=== PATIENT | male | born 1950 | race Caucasian/White ===

== ENCOUNTER 2017-03-01 10:57 | Outpatient (CLI) | payer MEDICARE ==
[~2017-03-01] VITALS: Ht 188 cm; Wt 92.7 kg
--- NOTE | ~2017-03-01 | HEMODYNAMI ---
PATIENT:ARON BOWLING MEDICAL RECORD: [id number] : 50 LOCATION:D.CAT ADMISSION DATE: 03/01/17 Generatedon:03/01/201713:50 Patient name: ARON BOWLING Patient #: [id number] SSN: : 1950 Date of study: 03/01/2017 Page: Of Hemodynamic Procedure Report Patient Data Patient Demographics Procedure consent was obtained First Name: ARON Gender: Male Last Name: DASH : 1950 Middle Initial: SUNIL Age: 66 year(s) Patient #: [id number] Race: Unknown Additional ID: [id number] Contact details Address: [address] [place] [address] State: [place] City: [place] Zip code: [address] Past Medical History Allergies Allergen Reaction Date Comments Reported Other allergy 03/01/2017 PCN, Sulfa Admission Admission Data Admission Date: 03/01/2017 Admission Time: 10:57 Admit Source: Other Height (in.): 72 BSA: 2.15 (m2) Height (cm.): 182.88 BMI: 27.67 (kg/m2) Weight (lbs.): 204 Weight (kg.): 92.53 Procedure Procedure Types Cath Procedure Diagnostic Procedure [facility] w/Coronaries PCI Procedure Coronary Stent Coronary Stent Initial Coronary Stent Additional Miscellaneous Procedures Moderate Sedation up to 15 minutes Procedure Description Procedure Date Procedure Date: 03/01/2017 Procedure Start Time: 13:24 Procedure End Time: 13:49 Procedure Staff Name Function Cb Richmond MD Performing Physician Linh Brown RT Monitor Chris Ling RT Scrub Adrienne East RN Nurse Procedure Data Cath Procedure Fluoroscopy Diagnostic fluoroscopy Total fluoroscopy Time: 6.8 time: 6.8 min min Diagnostic fluoroscopy Total fluoroscopy dose: 886 dose: 886 mGy mGy Contrast Material Contrast Material Type Amount (ml) Isovue 300 129 Entry Location Entry Primary Successful Side Size Upsize Upsize Entry Closure Lopez ccessful Closure Location (Fr) 1 (Fr) 2 (Fr) Remarks Device Remarks Radial Right 6 Fr Mechanical TR band artery Short Compression Estimated blood loss: 10 ml Diagnostic catheters Device Type Used For End Catheter Placement Diagnostic Terumo 5Fr Procedure [place] 110cm catheter Procedure Medications Medication Administration Route Dosage Oxygen NC 2 l/min Lidocaine 2% added to field 20 Heparin Flush Bag added to field 2 bags (1000units/500ml NS) 0.9% NaCl I.V. 100 ml/hr Versed I.V. 1 mg Fentanyl I.V. 50 mcg Versed I.V. 1 mg Fentanyl I.V. 50 mcg Radial Cocktail I.A. 1 syringe (Verapomil 2mg/Nitro 400mcg/Heparin 1500units) Heparin Bolus I.V. 4000 units Integrilin (Bolus I.V. 8.5 ml 2mg/ml) Versed I.V. 1 mg Fentanyl I.V. 50 mcg Plavix P.O. 600 mg Hemodynamics Rest BSA: 2.15 (m2) O2 Consumption: Estimated: 236.84 (ml/min) O2 Consumption indexed : Estimated:110.16 (ml/min/m) Heart Rate: 53 (bpm) Pressure Samples Time Site Value (mmHg) Purpose Heart Use Rate(bpm) 13:30 LV 116/19,22 EDP 53 Gradients Valve Time Site Site Mean SEP/DFP Peak To Heart Use 1 2 (mmHg) (sec/min) Peak Rate (mmHg) (bpm) Aortic 13:30 LV AO 60 Snapshots Pre Cath Intra NCS Post Cath Vital Signs Time Heart Resp SPO2 etCO2 NIBP (mmHg) Rhythm Pain Sedation Rate (ipm) (%) (mmHg) Status Level (bpm) 13:09:45 50 13 98 0 144/74(116) NSR 0 (11) 10(A) , No pain 13:14:29 54 14 96 18.7 128/71(105) NSR 0 (11) 10(A) , No pain 13:19:53 56 13 97 26.2 131/74(90) NSR 0 (11) 10(A) , No pain 13:24:34 55 14 93 30.7 142/73(104) NSR 0 (11) 9(A) , No pain 13:29:12 58 14 94 31.4 111/64(94) NSR 0 (11) 9(A) , No pain 13:34:25 63 15 95 11.9 126/67(112) NSR 0 (11) 9(A) , No pain 13:39:04 63 15 96 10.4 127/73(98) NSR 0 (11) 9(A) , No pain 13:43:43 57 16 97 41.1 130/69(96) NSR 0 (11) 10(A) , No pain 13:47:46 56 16 97 43.4 132/69(112) NSR 0 (11) 10(A) , No pain Medications Time Medication Route Dose Verified Delivered Reason Note s Effectiveness by by 13:13:37 Oxygen NC 2 l/min Cb Buffie used for St. Ck East RN procedure 13:13:46 Lidocaine 2% added 20ml Cb Cb for local to vial [facility] anesthetic field MD VELEZ 13:13:55 Heparin Flush added 2 bags Cb Cb used for Bag to [facility] procedure (1000units/500ml field MD VELEZ NS) 13:14:09 0.9% NaCl I.V. 100 Cb Buffie Per physician ml/hr [facility] Ck East RN, MD 13:17:50 Versed I.V. 1 mg Cb Oteroie for sedation [facility]. Ck East RN, MD 13:17:56 Fentanyl I.V. 50 mcg Cb Oteroie for sedation [facility]. Ck East RN, MD 13:24:19 Versed I.V. 1 mg Cb Oteroie for sedation St. Ck East RN, MD 13:24:24 Fentanyl I.V. 50 mcg Cb Oteroie for sedation St. Ck East RN, MD 13:26:07 Radial Cocktail I.A. 1 Cb Cb for (Verapomil syringe [facility] vasodilation 2mg/Nitro MD VELEZ 400mcg/Heparin 1500units) 13:35:44 Heparin Bolus I.V. [address] units [facility] Ck East RN anticoagulation 13:37:33 Integrilin I.V. 8.5 ml Cb Buffie for wast ed (Bolus 2mg/ml) St. Ck East RN antiplatelet 1.5 ml MD therapy of vial 13:41:24 Versed I.V. 1 mg Cb Oteroie for sedation St. Ck East RN, MD 13:41:28 Fentanyl I.V. 50 mcg Cb Deleon for sedation St. Ck East RN, MD 13:46:36 Plavix P.O. 600 [address]Dleon for St. Ck East RN antiplatelet therapy Procedure Log Time Note 12:39:35 Patient Height : 72 inches 12:39:39 Patient Weight : 204 lbs 12:40:38 Admit Source: Other 12:40:44 ACC Patient presents with No angina; no symptoms CCS Anginal Class 2--Slight limitation of ordinary activity. 12:40:46 Diagnostic Cath status Elective 12:40:51 Linh Brown RT(R) sent for patient. Start room use. 12:40:52 Time tracking: Regular hours 12:40:57 Plan of Care:Hemodynamics will remain stable., Cardiac rhythm will remain stable., Comfort level will be maintained., Respiratory function will remain adequate., Patient/ family verbilizes understanding of procedure., Procedure tolerated without complication., Recovers from procedure without complications.. 12:59:29 Patient received from Pre/Post Procedure Room to CCL 1 Alert and oriented. Tansferred to table in Supine position. 12:59:32 Warm blankets applied, and ariadna hugger turned on for patient comfort. 12:59:33 Correct patient and procedure confirmed by team. 12:59:35 Signed procedure consent form obtained from patient. 13:00:08 H&P Date Dictated: 02/18/2017 Within 30 days and on chart., H&P Addendum completed by physician on day of procedure. (MUST COMPLETE FOR ALL OUTPATIENTS). 13:00:10 Pre-op teaching completed and patient verbalized understanding. 13:00:11 Family in waiting room. 13:00:14 Patient NPO since Midnight. 13:00:34 Patient allergic to Other allergyPCN, Sulfa 13:00:45 Is the patient allergic to Iodine/contrast media? No. 13:08:46 Vital chart was started 13:12:13 Is patient on blood thinner?No 13:12:14 Was the patient premedicated? Yes 13:12:17 Patient diabetic? Yes. 13:12:30 If diabetic: On Metformin? Yes 13:12:33 If on Metformin: Last Dose? 02/28/2017 13:12:36 HCG/Urine : completed and on chart 13:12:41 Snore? Yes 13:12:43 Sleep apnea? Yes 13:12:51 Patient pain scale 0/10 ?. 13:13:08 Lab results completed and on chart. 13:13:12 Right Radial & Right Groin area was prepped with chlora-prep and draped in sterile fashion 13:13:13 Alarms reviewed by R. N. 13:13:14 Sharps counted by scrub and verified by R.N. 13:13:14 Physician paged 13:13:16 Physician arrived 13:13:17 --------ALL STOP TIME OUT------ 13:13:18 Final Timeout: patient, procedure, and site verified with staff and physician. All members of the team are in agreement. 13:13:19 Right Radial & Right Groin site verified by team. 13:13:37 Oxygen 2 l/min NC was administered by Adrienne East RN; used for procedure; 13:13:46 Lidocaine 2% 20ml vial added to field was administered by Cb Richmond MD; for local anesthetic; 13:13:55 Heparin Flush Bag (1000units/500ml NS) 2 bags added to field was administered by Cb Richmond MD; used for procedure; 13:14:09 0.9% NaCl 100 ml/hr I.V. was administered by Adrienne East RN; Per physician; 13:15:47 Physical assessment completed. ASA score P 2 - A patient with mild systemic disease as per Cb Richmond MD. 13:15:52 Sedation plan: IV Moderate Sedation Medication:Versed, Fentanyl 13:15:58 Use device set Radial Dx 13:15:59 Acist Syringe opened to sterile field. 13:16:00 Medline Cath Pack opened to sterile field. 13:16:00 Bag Decanter opened to sterile field. 13:16:01 Terumo 6Fr Slender Glidesheath opened to sterile field. 13:16:01 St Oliver 260cm J .035 wire opened to sterile field. 13:16:01 Acist Hand Control opened to sterile field. 13:16:02 Acist Manifold opened to sterile field. 13:16:02 Tegaderm 4 x 4 opened to sterile field. 13:16:03 MBrace Wrist Support opened to sterile field. 13:17:50 Versed 1 mg I.V. was administered by Adirenne East RN; for sedation; 13:17:56 Fentanyl 50 mcg I.V. was administered by Adrienne East RN; for sedation; 13:24:00 Procedure started. 13:24:00 Full Disclosure recording started 13:24:01 Zero performed for pressure channel P1 13:24:15 Zero performed for pressure channel P1 13:24:19 Versed 1 mg I.V. was administered by Adrienne East RN; for sedation; ::24 Fentanyl 50 mcg I.V. was administered by Adrienne East RN; for sedation; 13:24:30 Local anesthetic to right radial artery with Lidocaine 2% by Cb Richmond MD.INITIAL ACCESS ONLY 13:24:41 A 6 Fr Short sheath was inserted into the Right Radial artery 13:26:07 Radial Cocktail (Verapomil 2mg/Nitro 400mcg/Heparin 1500units) 1 syringe I.A. was administered by Cb Richmond MD; for vasodilation; 13:27:05 A Diagnostic Truzip 5Fr [place] 110cm catheter was advanced over the wire and used for Procedure. 13:27:38 RCA angiography performed. 13:29:28 LCA angiography performed. 13:30:20 LV angiography performed. 13:30:47 Catheter removed. 13:31:17 Medtronic Launcher 6Fr EBU 3.5 guide catheter opened to sterile field. 13:32:35 LCA angiography performed. 13:35:44 Heparin Bolus 4000 units I.V. was administered by Adrienne East RN; for anticoagulation; 13:36:42 Catheter removed. 13:37:17 modulR BasixCompak Inflation Kit opened to sterile field. 13:37:17 Martins Surgery Partnersisper J 300cm 0.014 guide wire opened to sterile field. 13:37:33 Integrilin (Bolus 2mg/ml) 8.5 ml I.V. was administered by Adrienne East RN; for antiplatelet therapy; wasted 1.5 ml of vial 13:38:04 6 Fr EBU 3.5 guide catheter was inserted over the wire 13:38:07 Surgery Partnersisper wire advanced. 13:39:30 Inflation Number: 1 A Medtronic Integrity 3.5 X 15 stent was prepped and advanced across the Mid CX. The stent was deployed at 14 BOSTON for 0:15 (min:sec). 13:39:45 Stent catheter was removed intact over wire. 13:40:13 Wire redirected to OM. 13:40:49 Stent balloon re-inserted over wire. 13:41:24 Versed 1 mg I.V. was administered by Adrienne East RN; for sedation; 13:41:28 Fentanyl 50 mcg I.V. was administered by Adrienne East RN; for sedation; 13:43:21 Inflation Number: 1 A Medtronic Integrity 2.5 x 14 stent was prepped and advanced across the 1st Ob Cassandra. The stent was deployed at 16 BOSTON for 0:22 (min:sec). 13:43:45 Balloon re-inserted over wire. 13:44:42 Terumo TR Band Standard opened to sterile field. 13:44:49 Stent balloon re-inserted over wire. 13:44:53 Wire removed. 13:44:53 Guide catheter removed. 13:45:16 Sheath removed intact; hemostasis achieved with Mechanical Compression to the Right Radial artery. 13:45:25 Procedure ended.(Physican Out) 13:45:37 Fluoroscopy time 06.80 minutes. 13:45:42 Fluoroscopy dose: 886 mGy 13:45:42 Flurop Dose total: 886 13:45:46 Contrast amount:Isovue 300 129ml. 13:45:48 Sharps counted by scrub and verified by R.N. 13:45:54 TR band inflated with 10cc of air. 13:45:55 Insertion/operative site no bleeding no hematoma. 13:46:00 Post Procedure Pulses reassessed and unchanged 13:46:07 Post procedure rhythm: unchanged. 13:46:09 Estimated blood loss: 10 ml 13:46:36 Plavix 600 mg P.O. was administered by Adrienne East RN; for antiplatelet therapy; 13:47:06 Procedure type changed to Cath procedure, Diagnostic procedure, LHC, LHC w/Coronaries, PCI procedure, Coronary Stent, Coronary Stent Initial, Coronary Stent Additional, Miscellaneous Procedures, Moderate Sedation up to 15 minutes 13:47:09 Procedure and supply charges have been captured, reviewed, submitted and are correct. 13:47:43 Vital chart was stopped 13:47:44 See physician's report for complete and final results. 13:47:46 Report given to Pre/Post Procedure Room. 13:47:49 Patient transfered to Pre/Post Procedure Room with Stretcher. 13:49:54 Procedure ended. 13:49:54 Full Disclosure recording stopped 13:50:01 End room use (Document Last) Intervention Summary Intervention Notes Time ActionType Lesion and Equipment Action# Pressure Duration Attributes Used 13:39:30 Place stent Mid CX Medtronic 1 14 00:15 Integrity 3.5 X 15 stent 13:43:21 Place stent 1st Ob Cassandra Medtronic 1 16 00:22 Integrity 2.5 x 14 stent Device Usage Item Name Manufacture Quantity Catalog Hospital Part Current Minimal Lot# / Number Charge Number Stock Stock Serial# Code Acist Acist 1 29943 337643 759441 758727 20 Syringe Medical Systems Inc Medline Cardinal 1 [id number] 249403 46731 184965 5 Cath Pack Health Bag Microtek 1 2001S 417279 61596 041143 5 Clothes Horse. Terumo 6Fr Terumo 1 [id number] 832426 056013 240985 [address] Olievr 1 040527 977963 387519 896457 30 260cm J .035 wire Acist Hand Acist 1 66313 099464 269162 636729 5 [employer] Medical [employer] Inc Acist Acist 1 16898 807099 543713 754357 5 Jet Medical Systems Inc Tegaderm 4 3M 1 1626W 877182 959422 861733 5 x 4 MBrace Advanced 1 140-0250-00 639839 46232 829400 5 Wrist Vascular Support Dynamics Diagnostic Terumo 1 04-7341 413122 855268 973860 5 Terumo 5Fr [place] 110cm catheter Medtronic Medtronic 1 [id number] 710336 30624 991779 3 Launcher 6Fr EBU 3.5 guide catheter Merit Merit 1 [id number] 544680 518503 893804 15 BasixCompak Medical Inflation Kit Martins Martins 1 [id number] 529788 342303 591760 5 Whisper J Vascular 300cm 0.014 guide wire Medtronic Medtronic 1 [id number] 567996 133377 4 [id number] Integrity 3.5 X 15 stent Medtronic Medtronic 1 [id number] 275878 631667 9 [id number] Integrity 2.5 x 14 stent Terumo TR Terumo 1 [id number] 103246 339827 009580 40 Band Standard Signature Audit Celestine Stage Time Signature Unsigned Intra-Procedure 03/01/2017 Linh Brown 1:50:27 PM RT(R) Signatures Monitor : Linh Brown Signature : RT Date : Time : [place] [id number] [facility] [place] [address]
[2017-03-01] MEDS ORDERED: BAYER CHEWABLE81 MG PO (11:12)
[2017-03-01] MEDS ORDERED: GLIMEPIRIDE4 MG PO (11:13)
[2017-03-01] MEDS ORDERED: INVOKANA300 MG PO (11:13)
[2017-03-01] MEDS ORDERED: GLUCOPHAGE1000 MG PO (11:13)
[2017-03-01] MEDS ORDERED: GEMFIBROZIL600 MG PO (11:13)
[2017-03-01 11:44] VITALS: BP 98/41; Ht 188 cm; Wt 92.7 kg
--- NOTE | 2017-03-01 12:23 | NUR ---
1220 BP RECHESCK, 125/69 LEFT ARM.
[2017-03-01 12:24] LABS: BASOPHILS 0.2 % (0-2); EOSINOPHILS 2.1 % (0-7); HEMATOCRIT 43.2 % (42.0-54.0); HEMOGLOBIN 15.3 g/dL (13.5-17.5); IMMATURE GRANULOCYTES 0.2 % (0-5); LYMPHOCYTES 28.3 % (15-50); MCH 31.9 pg (26.0-34.0); MCHC 35.4 g/dL (31.0-37.0); MCV 90.2 fL (80.0-100.0); MEAN PLATELET VOLUME 9.9 fL (7.4-10.4); MONOCYTES 5.9 % (2-11); NEUTROPHILS 63.3 % (40-80); PLATELET COUNT 238 10x3/uL (130-400); RBC 4.79 10x6/uL (4.20-6.10); RDW 12.7 % (11.5-14.5); WBC 4.7 10x3/uL (4.8-10.8)
[2017-03-01 12:45] LABS: CALC OSMOLALITY 289 mosm/kg (275-300); CALCIUM 9.3 mg/dL (8.5-10.1); CARBON DIOXIDE 26.9 mmol/L (21.0-32.0); CHLORIDE - SERUM 106 mmol/L (98-107); CREATININE - SERUM 0.8 mg/dL (0.6-1.3); GLUCOSE 221 mg/dL (74-106); POTASSIUM - SERUM 4.2 mmol/L (3.5-5.1); SODIUM 142 mmol/L (136-145); UREA NITROGEN 13 mg/dL (7-18); eGFR NON AFRICAN AMERICAN > 90 mL/min (90-120)
[2017-03-01] MEDS ORDERED: PLAVIX75 MG PO (13:54)
--- NOTE | 2017-03-01 14:15 | NUR ---
ROOM AIR, NO RESP DISTRESS. RIGHT WRIST TR BAND CDI, NO BLEEDING OR HEMATOMA NOTED. NO C/O NAUSEA OR PAIN. VSS. FAMILY AT BEDSIDE, CALL LIGHT WITHIN REACH.
--- NOTE | 2017-03-01 14:45 | NUR ---
RIGHT WRIST TR BAND CDI, NO BLEEDING OR HEMATOMA NOTED. ROOM AIR, NO RESP DISTRESS. NO C/O PAIN OR NAUSEA. VSS. WILL CONTINUE TO MONITOR.
--- NOTE | 2017-03-01 15:00 | NUR ---
RESTING QUIETLY WITH EYES CLOSED. RIGHT WRIST TR BAND CDI, NO BLEEDING OR HEMATOMA NOTED. VSS. NO C/O AT THIS TIME. CALL LIGHT WITHIN REACH.
--- NOTE | 2017-03-01 15:30 | NUR ---
SANDWICH TRAY AND DRINK GIVEN. NO C/O NAUSEA OR PAIN. RIGHT WRIST TR BAND CDI, NO BLEEDING OR HEMATOMA NOTED. ROOM AIR, NO RESP DISTRESS. VSS. FAMILY AT BEDSIDE, WILL CONTINUE TO MONITOR.
--- NOTE | 2017-03-01 16:30 | NUR ---
RIGHT WRIST TR BAND CDI, NO BLEEDING OR HEMATOMA NOTED. ROOM AIR, NO RESP DISTRESS. NO C/O PAIN OR NAUSEA. VSS. FAMILY AT BEDSIDE, CALL LIGHT WITHIN REACH.
--- NOTE | 2017-03-01 16:59 | NUR ---
3CC OF AIR REMOVED FROM TR BAND, NO BLEEDING NOTED.
--- NOTE | 2017-03-01 17:15 | NUR ---
3CC OF AIR REMOVED FROM TR BAND, NO BLEEDING NOTED.
--- NOTE | 2017-03-01 17:30 | NUR ---
3CC OF AIR REMOVED FROM TR BAND, NO BLEEDING NOTED.
--- NOTE | 2017-03-01 17:38 | NUR ---
LEFT HAND PIV D/C'D WITH CATHETER INTACT, BAND AID TO SITE. UP TO BEDSIDE TO GET DRESSED.
--- NOTE | 2017-03-01 17:45 | NUR ---
AMBULATED TO RESTROOM TO VOID.
--- NOTE | 2017-03-01 17:50 | NUR ---
REMAINING AIR REMOVED FROM TR BAND, DRESSING TO SITE. DISCHARGE INSTRUCTIONS GIVEN, VERBALIZED UNDERSTANDING.
--- NOTE | 2017-03-01 18:00 | NUR ---
TAKEN OUT VIA WHEELCHAIR BY CATH PERFUME AND TOILET WATER MAKER. LEFT FACILITY WITH FAMILY AND ALL PERSONAL BELONGINGS.
--- NOTE | 2017-03-09 13:00 | OP ---
PATIENT NAME: ARON BOWLING MEDICAL RECORD: [id number] :50 LOCATION:D.CAT ADMISSION DATE: SURGEON: FLETCHER [place] MD DATE OF OPERATION: 03/01/2017 PROCEDURE: Left heart catheterization, selective coronary angiography, right radial artery approach. CATHETERS: Radial sheath and Providence catheter. The procedure was well tolerated and the patient returned to the tomas, sheath removed. TR band was placed. FINDINGS: Left ventriculography in 30-degree PALMA view: Normal wall motion and normal systolic function. CORONARY ANATOMY. LEFT MAIN: Left main is free of disease. LAD: The LAD is a small LAD, not quite reaching the apex. There is an 80% stenosis just distal to the takeoff of the first diagonal. CIRCUMFLEX: Circumflex itself has about 80% stenosis after the takeoff of the first OM. The OM1 has a proximal/ostial stenosis of approximately 90%. IMPRESSION: Plan intervention of the OM circumflex momentarily with intervention of LAD at a later date. DESCRIPTION OF PROCEDURE: Using the indwelling sheath, EBU 3.5 guiding catheter provided good guide catheter support followed by 300 cm Whisper wire initially placed across the true circumflex down the origin of this vessel. Stent deployed in the 80% stenosed circumflex was a 3.5 x 51 mm Integrity nondrug-eluting stent. Next, balloon and wire were withdrawn. We then proceeded to stenting of the OM after indwelling 300 cm Whisper wire placed across the tightly occluded 90% OM. A 2.5 x 50 mm Integrity stent was inflated up to 16 atmospheres for 45 seconds. Final injection shows excellent resolution of a 90% stenosis, no significant residual. There was nice plumping of the distal vasculature downstream. IMPRESSION: 1. Successful PTCA stenting to the circumflex. 2. Successful PTCA stenting to OM1. 3. Plan for intervention of the LAD at a later date. TRANSINT:[id number] Voice Confirmation ID: [id number] DOCUMENT ID: [id number] FLETCHER [place] MD at 1300 CC: [id number] DICTATION DATE: 03/01/17 1352 END FINDER FORMING DEPARTMENT: 03/01/17 1517 DEP CLI 03/01/17 [place] [address]
== END 2017-03-01 18:00 | disposition home or self-care (01) ==
LOC: D.CATH 10:57
PROVIDERS: Internal Medicine Interventional Cardiology
DX: I25.119 Atherosclerotic heart disease of native coronary artery with unspecified angina pectoris (principal); Z01.812 Encounter for preprocedural laboratory examination

== ENCOUNTER 2017-03-16 11:15 | Outpatient (CLI) | payer MEDICARE ==
[~2017-03-16] VITALS: Ht 188 cm; Wt 92.7 kg
--- NOTE | ~2017-03-16 | HEMODYNAMI ---
PATIENT:ARON BOWLING MEDICAL RECORD: [id number] : 50 LOCATION:[facility] ADMISSION DATE: 03/16/17 Generatedon:03/16/201714:09 Patient name: ARON BOWLING Patient #: [id number] SSN: : 1950 Date of study: 03/16/2017 Page: Of Hemodynamic Procedure Report Patient Data Patient Demographics Procedure consent was obtained First Name: ARON Gender: Male Last Name: DASH : 1950 Middle Initial: SUNIL Age: 66 year(s) Patient #: [id number] Race: Unknown Additional ID: [id number] Contact details Address: [address] [place] [address] State: [place] City: [place] Zip code: [address] Past Medical History Allergies Allergen Reaction Date Comments Reported Other allergy 03/01/2017 PCN, Sulfa Admission Admission Data Admission Date: 03/16/2017 Admission Time: 11:15 Procedure Procedure Types Cath Procedure PCI Procedure Coronary Stent Coronary Stent Initial PTCA PTCA Additional Miscellaneous Procedures Moderate Sedation up to 30 minutes Procedure Description Procedure Date Procedure Date: 03/16/2017 Procedure Start Time: 13:51 Procedure End Time: 14:09 Procedure Staff Name Function Cb Richmond MD Performing Physician Rizwana Hankins RT Monitor Jessica Tolliver RT Scrub Roderick Urrutia RN Nurse Matt Amezcua RN Document Preparer Microfilming Procedure Data Cath Procedure Fluoroscopy Diagnostic fluoroscopy Total fluoroscopy Time: 4.5 time: 4.5 min min Diagnostic fluoroscopy Total fluoroscopy dose: 418 dose: 418 mGy mGy Contrast Material Contrast Material Type Amount (ml) Isovue 300 62 Entry Location Entry Primary Successful Side Size Upsize Upsize Entry Closure Succes sful Closure Location (Fr) 1 (Fr) 2 (Fr) Remarks Device Remarks Femoral Right 6 Fr Exoseal artery Short Estimated blood loss: 10 ml Procedure Complications No complications Procedure Medications Medication Administration Route Dosage 0.9% NaCl I.V. 100 ml/hr Oxygen NC 2 l/min Heparin Flush Bag added to field 2 bags (1000units/500ml NS) Lidocaine 2% added to field 20 Versed I.V. 1 mg Fentanyl I.V. 50 mcg Versed I.V. 0.5 mg Fentanyl I.V. 25 mcg Heparin Bolus I.V. 5000 units Versed I.V. 0.5 mg Fentanyl I.V. 25 mcg Hemodynamics Rest Heart Rate: 61 (bpm) Snapshots Pre Cath Intra NCS Post Cath Vital Signs Time Heart Resp SPO2 etCO2 NIBP Rhythm Pain Sedation Rate (ipm) (%) (mmHg) (mmHg) Status Level (bpm) 13:45:26 64 16 98 37.7 124/68(87) NSR 0 (11) 10(A) , No pain 13:50:06 55 13 96 43.7 125/60(82) NSR 0 (11) 10(A) , No pain 13:54:47 58 14 95 40 118/62(93) NSR 0 (11) 9(A) , No pain 13:59:27 61 13 96 48.3 124/57(97) NSR 0 (11) 9(A) , No pain 14:04:06 59 17 97 38.5 127/65(93) NSR 0 (11) 9(A) , No pain 14:08:47 56 15 98 39.2 118/62(87) NSR 0 (11) 9(A) , No pain Medications Time Medication Route Dose Verified Delivered Reason Notes Effectiveness by by 13:44:53 0.9% NaCl I.V. 100 Roderick Roderick Per physician ml/hr Renan Urrutia RN, RN 13:45:02 Oxygen NC 2 Roderick Roderick Per physician l/min Renan Urrutia RN RN 13:45:14 Heparin Flush added 2 Roderick Roderick used for Bag to bags Renan Urrutia procedure (1000units/500ml field CORADO RN NS) 13:45:27 Lidocaine 2% added 20ml Roderick Roderick for local to vial Renan Urrutia anesthetic field MAK CORADO 13:49:16 Versed I.V. 1 mg Roderick Roderick for sedation Renan Urrutia RN, RN 13:49:26 Fentanyl I.V. 50 Roderick Roderick for sedation mcg Renan Urrutia RN, RN 13:52:16 Versed I.V. 0.5 Roderick Roderick for sedation mg Renan Urrutia RN RN 13:52:22 Fentanyl I.V. 25 Roderick Roderick for sedation mcg Renan Urrutia RN RN 13:55:04 Heparin Bolus I.V. 5000 Roderick Roderick for units Renan Urrutia anticoagulation RN RN 14:06:11 Versed I.V. 0.5 Roderick Roderick for sedation mg Renan Urrutia RN RN 14:06:17 Fentanyl I.V. 25 Roderick Roderick for sedation mcg Renan Urrutia RN garnett machine operator Log Time Note 13:33:10 Matt Amezcua RN sent for patient. Start room use. 13:33:11 Time tracking: Regular hours 13:33:14 Plan of Care:Hemodynamics will remain stable., Cardiac rhythm will remain stable., Comfort level will be maintained., Respiratory function will remain adequate., Patient/ family verbilizes understanding of procedure., Procedure tolerated without complication., Recovers from procedure without complications.. 13:35:55 Patient received from Pre/Post Procedure Room to CCL 1 Alert and oriented. Tansferred to table in Supine position. 13:35:55 Warm blankets applied, and ariadna hugger turned on for patient comfort. 13:35:56 Correct patient and procedure confirmed by team. 13:35:58 Signed procedure consent form obtained from patient. 13:35:59 ECG and BP/O2 sat monitors applied to patient. 13:36:00 Full Disclosure recording started 13:44:37 Vital chart was started 13:44:53 0.9% NaCl 100 ml/hr I.V. was administered by Roderick Urrutia RN; Per physician; 13:45:02 Oxygen 2 l/min NC was administered by Roderick Urrutia RN; Per physician; 13:45:14 Heparin Flush Bag (1000units/500ml NS) 2 bags added to field was administered by Roderick Urrutia RN; used for procedure; 13:45:27 Lidocaine 2% 20ml vial added to field was administered by Roderick Urrutia RN; for local anesthetic; 13:45:32 Use device set CATH PACK 13:45:34 Use device set YANELY PCI 13:47:03 Rhythm: sinus rhythm 13:47:06 Baseline sample Acquired. 13:47:16 H&P Date Dictated: 03/16/2017 Within 30 days and on chart., H&P Addendum completed by physician on day of procedure. (MUST COMPLETE FOR ALL OUTPATIENTS). 13:47:17 Pre-procedure instructions explained to patient. 13:47:17 Pre-op teaching completed and patient verbalized understanding. 13:47:18 Family in waiting room. 13:47:20 Patient NPO since Midnight. 13:47:27 Is patient on blood thinner?Yes 13:47:47 ACC The patient was administered the following blood thiners within the last 24 hours: ACCAspirin, ACCPlavix 13:47:49 Patient diabetic? No. 13:47:53 Previous problem with sedation/anesthesia? No ? 13:47:56 Snore? Yes 13:47:57 Sleep apnea? No 13:47:58 Deviated septum? No 13:47:59 Opens mouth fully? Yes 13:47:59 Sticks out tongue? Yes 13:48:01 Airway obstruction? No ? 13:48:02 Dentures? No ? 13:48:05 Pre procedure: right dorsailis pedis pulse 2+ Normal; easily identifiable; not easily obliterated 13:48:07 Patient pain scale 0/10 ?. 13:48:11 IV patent on arrival in left hand with 0.9% NaCl at [facility]. 13:48:14 Lab results completed and on chart. 13:48:16 Right groin area was prepped with chlora-prep and draped in sterile fashion 13:48:17 Alarms reviewed by R. N. 13:48:18 Sharps counted by scrub and verified by R.N. 13:48:19 Final Timeout: patient, procedure, and site verified with staff and physician. All members of the team are in agreement. 13:48:21 Right groin site verified by team. 13:48:24 Physical assessment completed. ASA score P 2 - A patient with mild systemic disease as per Cb Richmond MD. 13:48:27 Sedation plan: IV Moderate Sedation Medication:Versed, Fentanyl 13:48:31 ACIST Syringe (70753) opened to sterile field. 13:48:32 ACIST Hand Control (95127) opened to sterile field. 13:48:33 ACIST Manifold (77333) opened to sterile field. 13:48:33 Medline Cath Pack ([id number]) opened to sterile field. 13:48:34 Bag Decanter (2001) opened to sterile field. 13:48:35 DIAGNOSTIC WIRE .035 260cm J wire (325740) opened to sterile field. 13:48:35 INFLATOR Merit BasixCompak (XN3670) opened to sterile field. 13:48:36 SHEATH 6FR Beaman (LOO893) opened to sterile field. 13:48:37 WHISPER 300cm guide wire ([id number]) opened to sterile field. 13:48:40 GUIDE 6FR XBLAD 3.5 catheter ([id number]) opened to sterile field. 13:49:16 Versed 1 mg I.V. was administered by Roderick Urrutia RN; for sedation; 13:49:26 Fentanyl 50 mcg I.V. was administered by Roderick Urrutia RN; for sedation; 13:49:31 Zero performed for pressure channel P1 13:51:25 Procedure started. 13:51:29 Local anesthetic to right femoral artery with Lidocaine 2% by Cb Richmond MD.INITIAL ACCESS ONLY 13:51:41 A 6 Fr Short sheath was inserted into the Right Femoral artery 13:52:16 Versed 0.5 mg I.V. was administered by Roderick Urrutia RN; for sedation; 13:52:22 Fentanyl 25 mcg I.V. was administered by Roderick Urrutia RN; for sedation; 13:52:30 6 Fr XBLAD 3.5 guide catheter was inserted over the wire 13:54:29 Whisper wire advanced. 13:55:04 Heparin Bolus 5000 units I.V. was administered by Roderick Urrutia RN; for anticoagulation; 13:58:19 Inflation Number: 1 A CLARKE OTW 3.0 x 18 stent ([id number]) was prepped and advanced across the Mid LAD. The stent was deployed at 14 BOSTON for 0:41 (min:sec). 13:59:14 Wire redirected to DIAG. 14:00:19 Stent catheter was removed intact over wire. 14:03:25 Inflation number: 1 A EUPHORA 2.0 x 10 Balloon ([id number]) was prepped and advanced across the 1st Diag, then inflated to 8 BOSTON for 0:24 (min:sec). 14:03:45 Balloon removed over the wire. 14:03:45 Wire removed. 14:03:46 Guide catheter removed. 14:03:58 Sheath removed intact; hemostasis achieved with Exoseal to the Right Femoral artery. 14:04:00 Procedure ended.(Physican Out) 14:04:07 EXOSEAL 6Fr (EX600) opened to sterile field. 14:04:14 Fluoroscopy time 04.50 minutes. 14:04:17 Flurop Dose total: 418 14:04:17 Fluoroscopy dose: 418 mGy 14:04:23 Contrast amount:Isovue 300 62ml. 14:04:24 Sharps counted by scrub and verified by R.N. 14:04:25 Insertion/operative site no bleeding no hematoma. 14:04:28 Post-op/insertion site Right Femoral artery dressed using a 4 x 4 and Tegaderm. 14:04:31 Post right femoral artery:stable, soft, clean and dry 14:04:32 Post Procedure Pulses reassessed and unchanged 14:04:41 Post-procedure physical assessment completed. ASA score P 2 - A patient with mild systemic disease as per Cb Richmond MD. 14:04:44 Post procedure rhythm: unchanged. 14:04:47 Estimated blood loss: 10 ml 14:04:48 Post procedure instruction explained to patient.Patient verbalizes understanding. 14:04:49 Patient needs reinforcement of post procedure teaching. 14:05:20 Procedure type changed to Cath procedure, PCI procedure, Coronary Stent, Coronary Stent Initial, PTCA, PTCA Additional, Miscellaneous Procedures, Moderate Sedation up to 30 minutes 14:05:21 Procedure and supply charges have been captured, reviewed, submitted and are correct. 14:05:25 Procedure Complication : No complications 14:05:27 See physician's report for complete and final results. 14:06:11 Versed 0.5 mg I.V. was administered by Roderick Urrutia RN; for sedation; 14::17 Fentanyl 25 mcg I.V. was administered by Roderick Urrutia RN; for sedation; 14:06:55 PERCUTANEOUS ENTRY 19GA needle opened to sterile field. 14:09: Vital chart was stopped 14:: Report given to Pre/Post Procedure Room. 14:09:09 Patient transfered to Pre/Post Procedure Room with Stretcher. 14:09:11 Procedure ended. 14:09:11 Full Disclosure recording stopped 14::17 End room use (Document Last) Intervention Summary Intervention Notes Time ActionType Lesion and Equipment Action# Pressure Duration Attributes Used 13:58:19 Place stent Mid LAD CLARKE OTW 3.0 1 14 00:41 x 18 stent ([id number]) 14:03:25 Inflate 1st Diag EUPHORA 2.0 x 1 8 00:24 balloon 10 Balloon ([id number]) Device Usage Item Name Manufacture Quantity Catalog Hospital Part Current Mini mal Lot# / Number Charge Number Stock Stock Serial# Code ACIST Syringe Acist 1 69671 695894 021253 782632 20 (02740) Medical Systems Inc ACIST Hand Acist 1 54884 610932 475900 061312 5 Control Medical (75690) Systems Inc ACIST Acist 1 74016 559715 519059 737642 5 Manifold Medical (75121) Systems Inc Medline Cath Cardinal 1 [id number] 212030 87937 770355 5 Pack Health ([id number]) Bag Decanter Microtek 1 2001S 930308 01146 249061 5 () Medical Inc. DIAGNOSTIC [facility] [place] 1 267120 728736 609758 685205 30 WIRE .035 260cm J wire (118674) INFLATOR Dooda Inc. 1 SZ7026 997781 640705 469114 15 Dooda Inc. Medical BasixCompak (TL5989) SHEATH 6FR Terumo 1 IXR089 491941 727554 966373 40 Beaman (KFU657) WHISPER 300cm Martins 1 [id number] 079845 051859 352944 5 guide wire Vascular ([id number]) GUIDE 6FR Cardinal 1 08011572 879704 006232 264199 10 XBLAD 3.5 Health catheter (55938355) CLARKE OTW 3.0 Medtronic 1 [id number] 953651 4924069 704391 5 [id number] x 18 stent ([id number]) EUPHORA 2.0 x Medtronic 1 [id number] 568548 869991 844173 5 10 Balloon ([id number]) EXOSEAL 6Fr Cardinal 1 EX600 004358 117942 811022 10 (EX600) Health PERCUTANEOUS [facility] 1 E96749 774344 803812 5 ENTRY 19GA needle Signature Audit [place] Stage Time Signature Unsigned Intra-Procedure 03/16/2017 Rizwana 2:09:27 PM Counts RT(R) Signatures Monitor : Rizwana Signature : Counts RT Date : Time : [address] [place] [address]
[~2017-03-16 11:15] MED LIST: BAYER CHEWABLE81 MG PO; GEMFIBROZIL600 MG PO; GLIMEPIRIDE4 MG PO; GLUCOPHAGE1000 MG PO; INVOKANA300 MG PO; PLAVIX75 MG PO
[2017-03-16] MEDS ORDERED: ZESTRIL20 MG PO (12:01)
[2017-03-16 12:05] VITALS: Ht 188 cm; Wt 92.7 kg
[2017-03-16 12:34] LABS: BASOPHILS 0.2 % (0-2); EOSINOPHILS 2.4 % (0-7); HEMOGLOBIN 15.1 g/dL (13.5-17.5); LYMPHOCYTES 26.6 % (15-50); MCH 31.8 pg (26.0-34.0); MCV 88.4 fL (80.0-100.0); MEAN PLATELET VOLUME 9.6 fL (7.4-10.4); MONOCYTES 5.4 % (2-11); NEUTROPHILS 65.4 % (40-80); PLATELET COUNT 232 10x3/uL (130-400); RBC 4.75 10x6/uL (4.20-6.10); RDW 12.7 % (11.5-14.5)
[2017-03-16 12:57] LABS: CALC OSMOLALITY 279 mosm/kg (275-300); CALCIUM 8.7 mg/dL (8.5-10.1); CARBON DIOXIDE 25.2 mmol/L (21.0-32.0); CHLORIDE - SERUM 103 mmol/L (98-107); CREATININE - SERUM 0.7 mg/dL (0.6-1.3); GLUCOSE 196 mg/dL (74-106); POTASSIUM - SERUM 3.9 mmol/L (3.5-5.1); SODIUM 137 mmol/L (136-145); UREA NITROGEN 15 mg/dL (7-18); eGFR NON AFRICAN AMERICAN > 90 mL/min (90-120)
--- NOTE | 2017-03-16 14:15 | NUR ---
1415 RECIEVED TO ROOM VIA STRETCHER FROM LEAD REFINER WITH 6 FR EXOSEAL R/GROIN CDI NO BLEEDING NO HEMATOMA NOTED. VSS WITH CHEST PAIN DENIED
--- NOTE | 2017-03-16 14:45 | NUR ---
RESTING QUIETLY WITH VSS. 6 FR EXOSEAL R/GROIN CDI NO BLEEDING NO HEMATOMA NOTED. INSTRUCTED PATIENT TO KEEP HEAD FLAT ON PILLOW WITH RLE STRAIGHT
--- NOTE | 2017-03-16 15:11 | NUR ---
RESTING QUIETLY WITH NO DISTRESS NOTED. 6 FR EXOSEAL R/GROIN CDI NO BLEEDING NO HEMATOMA NOTED. VSS
--- NOTE | 2017-03-16 15:35 | NUR ---
6 FR EXOSEAL R/GROIN CDI NO BLEEDING NO HEMATOMA NOTED. FAMILY AT SIDE VSS
--- NOTE | 2017-03-16 15:58 | NUR ---
NO CHANGE IN ASSESSMENT CONTINUES TO REST
--- NOTE | 2017-03-16 16:43 | NUR ---
R/GROIN CDI NO BLEEDING NO HEMATOMA NOTED VSS. FAMILY IS AT BEDSIDE PATIENT DENIED PAIN OR NEEDS
--- NOTE | 2017-03-16 17:29 | NUR ---
HOB ELEVATED 30 DEGREES. RIGHT GROIN 6F EXOSEAL CDI, NO BLEEDING OR HEMATOMA NOTED. VSS.
--- NOTE | 2017-03-16 17:48 | NUR ---
LEFT HAND PIV D/C'D WITH CATHETER INTACT, BAND AID TO SITE. UP TO BEDSIDE TO GET DRESSED.
--- NOTE | 2017-03-16 17:52 | NUR ---
DISCHARGE INSTRUCTIONS GIVEN, VERBALIZED UNDERSTANDING.
--- NOTE | 2017-03-16 18:00 | NUR ---
TAKEN OUT VIA WHEELCHAIR BY CATH FOLDER MACHINE. LEFT FACILITY WITH FAMILY AND ALL PERSONAL BELONGINGS.
--- NOTE | 2017-03-21 08:17 | HP ---
PATIENT: ARON BOWLING MEDICAL RECORD: [id number] ACCOUNT: [id number] LOCATION:[facility]KA : 50 ADMISSION DATE: 03/16/17 HISTORY AND PHYSICAL EXAMINATION HISTORY OF PRESENT ILLNESS: A 66-year-old gentleman with history of coronary artery disease. Initially he was seen in the office with progressive exertional angina. He has undergone intervention to the circumflex, being admitted for intervention to the LAD today. PAST MEDICAL HISTORY: Includes: 1. History of diabetes mellitus. 2. Hypertension. 3. Dyslipidemia. ALLERGIES: PENICILLIN AND SULFA. MEDICATIONS: Include Plavix 75 every day, Lopid 600 mg every day, lisinopril 20 every day, aspirin 81 every day, Invokana 300 mg every day, Amaryl 4 mg every day, and Glucophage 1 gram b.i.d. PHYSICAL EXAMINATION: GENERAL: Pleasant gentleman in no acute distress, appears stated age. HEENT: Normocephalic, atraumatic. NECK: No JVD or bruit. HEART: Regular. LUNGS: Tolliver clear. ABDOMEN: Soft, nontender. EXTREMITIES: Pulses 2+. There is no edema. ASSESSMENT: Planned intervention of the LAD today. TRANSINT:[id number] Voice Confirmation ID: [id number] DOCUMENT ID: [id number] FLETCHER [place] MD at 0817 CC: [id number] DICTATION DATE: 03/16/17 1343 SERVICE DESK ASSOCIATE: 03/16/17 1408 DEP CLI 03/16/17 [place] [address]
--- NOTE | 2017-03-21 08:17 | OP ---
PATIENT NAME: ARON BOWLING MEDICAL RECORD: [id number] :50 LOCATION:D.CAT ADMISSION DATE: SURGEON: FLETCHER NY MD DATE OF OPERATION: 03/16/2017 PTCA AND STENT REPORT For cath report, please see report from 01 of March. DESCRIPTION OF PROCEDURE: After a 6-Citizen Of [place] sheath was placed in the right femoral artery, XB LAD 3.5 guiding catheter provided excellent guide catheter support followed by 300 cm Whisper wire was placed across the 80% stenosis down to the distal portion of this vessel. Stent deployed was 3.0 x 18 mm [place] drug-eluting stent up to 14 atmospheres for 5 seconds. This showed excellent resolution of an 80% stenosis of LAD to no significant residual. However, there was snowplowing of the moderately sized diagonal 1. Next, 300 cm Whisper wire was placed across the snowplowed 80% stenosed diagonal. Balloon used was 2.0 x 10 mm Euphora balloon up to 14 atmospheres for 30 seconds. Final injection showed excellent resolution of 80% snowplowed diagonal with no significant residual. TONIO flow was 3 throughout the procedure. The patient was previously on Plavix. Sheath closed with ExoSeal device. TRANSINT:[id number] Voice Confirmation ID: [id number] DOCUMENT ID: [id number] FLETCHER [place] MD at 0817 CC: [id number] DICTATION DATE: 03/16/17 1410 SCHOOL SUPERINTENDENT: 03/16/17 1552 DEP CLI 03/16/[address] [address]
== END 2017-03-16 18:00 | disposition home or self-care (01) ==
LOC: D.CATH 11:15
PROVIDERS: Internal Medicine Interventional Cardiology
DX: I25.119 Atherosclerotic heart disease of native coronary artery with unspecified angina pectoris (principal); I10 Essential (primary) hypertension; E78.5 Hyperlipidemia, unspecified; E11.9 Type 2 diabetes mellitus without complications; Z79.84 Long term (current) use of oral hypoglycemic drugs; Z79.02 Long term (current) use of antithrombotics/antiplatelets; Z79.82 Long term (current) use of aspirin; Z79.899 Other long term (current) drug therapy; Z88.0 Allergy status to penicillin; Z88.2 Allergy status to sulfonamides; Z01.812 Encounter for preprocedural laboratory examination
CPT/HCPCS: 92921; C9600

== ENCOUNTER → 2018-12-29 08:35 | Outpatient (CLI) | payer MEDICARE ==
[2017-03-16 12:05] VITALS: BMI 26.2
[~2018-12-29 08:35] MED LIST changes: +ZESTRIL20 MG PO
--- NOTE | 2019-01-02 13:08 | EC ---
PATIENT:ARON BOWLING DATE OF SERVICE: 12/29/18 SEX: M MEDICAL RECORD: [id number] DATE OF : 50 LOCATION:[facility] AGE OF PATIENT: 68 ADMISSION DATE: 12/29/18 REFERRING PHYSICIAN: INTERPRETING PHYSICIAN: FLETCHER [place] MD ECHOCARDIOGRAM REPORT ECHO CHARGES 4 ECHO COMPLETE Date: 12/29/18 CLINICAL DIAGNOSIS: HTN HX MR/TR/R BBB ECHOCARDIOGRAPHIC MEASUREMENTS (adult normal given) AC root (d.<3.7cm) 4.4 cm LV Septum d (<1.2 cm> 1.5 cm Valve Excursion 2.4 cm LV Septum (systole) 2.1 cm Left Atria (s.<4.0cm> 3.4 cm LVPW d(<1.2cm) 1.6 cm RV (d.<2.3cm) 4.7 cm LVPW (sytole) 2.0 cm LV diastole(<5.6CM) 4.7 cm MV E-F(>70mm/sec) cm LV systole 3.2 cm LVOT Diameter 2.3 cm MV exc.(>10mm) 2.5 cm Est.ejection fraction (50-75%) % DOPPLER: LVIT cm/sec A 72.0 cm/sec E 59.0 cm/sec LA cm/sec RVSP 32 mmHg LVOT 93 cm/sec AOP1/2T 640 m/s Asc. Ao 115 cm/sec RVOT 74 cm/sec RA cm/sec PA 95 cm/sec AV Gradient Peak 5.28 mmHg AV Mean 2.64 mmHg AV Area 3.3 cm MV Gradient Peak 3.17 mmHg MV Mean 0.72 mmHg MV Area cm COMMENTS: Coagulant Dipper: 2 ROMIE CAROLINA Intervention Analyst: 3 Dr. Richmond TAPE# PACS Pericardial Effusion N DATE OF SERVICE: Adequate 2D, Color Flow, spectral Doppler, and M-Mode LVH is present. LV internal dimension is normal. Wall motion is normal. Ejection fraction is greater than or equal to 50% to 55%. Aortic valve is tricuspid. No evidence of stenosis by Doppler interrogation with mild AI with color flow imaging. Left atrium is normal at 3.4 cm with prolapse. Mild MR. Right-sided chambers are grossly normal. Trace TR. ECHOCARDIOGRAM REPORT [id number] ARON BOWLING TRANSINT:[id number] Voice Confirmation ID: [id number] DOCUMENT ID: [id number] FLETCHER [place] MD at 1308 CC: [id number] DICTATION DATE: 01/01/19 1321 SIDEROGRAPHIST: 01/01/192240 DEP CLI 12/29/18 [place] [id number] [place] [id number]
== END | disposition home or self-care (01) ==
LOC: D.HCCECHO 08:35 → D.HCCARDIO 09:00
PROVIDERS: ATTEND Internal Medicine Interventional Cardiology
DX: I10 Essential (primary) hypertension (principal)

== ENCOUNTER 2019-02-28 21:36 | Emergency (ER) | payer MEDICARE ==
[~2019-02-28] VITALS: Ht 188 cm; Wt 93.6 kg
[2019-02-28 21:46] VITALS: Ht 188 cm; Wt 93.6 kg
[2019-02-28] MEDS ORDERED: FARXIGA10 MG PO (21:50)
[2019-02-28] MEDS ORDERED: SYNTHROID50 MCG PO (21:51)
[2019-02-28 22:28] LABS: BASOPHILS 0.2 % (0-2); EOSINOPHILS 1.5 % (0-7); HEMATOCRIT 47.5 % (42.0-54.0); HEMOGLOBIN 16.7 g/dL (13.5-17.5); IMMATURE GRANULOCYTES 0.6 % (0-5); LYMPHOCYTES 8.4 % (15-50); MCH 32.1 pg (26.0-34.0); MCHC 35.2 g/dL (31.0-37.0); MCV 91.2 fL (80.0-100.0); MEAN PLATELET VOLUME 9.6 fL (7.4-10.4); MONOCYTES 6.6 % (2-11); NEUTROPHILS 82.7 % (40-80); PLATELET COUNT 266 10x3/uL (130-400); RBC 5.21 10x6/uL (4.20-6.10); RDW 12.6 % (11.5-14.5); WBC 11.5 10x3/uL (4.8-10.8)
[2019-02-28 22:42] LABS: APTT 33.4 SECONDS (22.8-39.4); INR 1.1 (0.85-1.17); PROTIME 13.7 SECONDS (11.6-15.0)
[2019-02-28 23:01] LABS: CALC OSMOLALITY 290 mosm/kg (275-300); CALCIUM 8.7 mg/dL (8.5-10.1); CARBON DIOXIDE 23.8 mmol/L (21.0-32.0); CHLORIDE - SERUM 105 mmol/L (98-107); CREATININE - SERUM 1.1 mg/dL (0.6-1.3); GLUCOSE 224 mg/dL (74-106); POTASSIUM - SERUM 3.9 mmol/L (3.5-5.1); SODIUM 140 mmol/L (136-145); UREA NITROGEN 26 mg/dL (7-18); eGFR NON AFRICAN AMERICAN 71 mL/min (90-120)
[2019-02-28 23:23] LABS: ALBUMIN 3.5 g/dL (3.4-5.0); ALKALINE PHOSPHATASE 43 U/L (46-116); ALT (SGPT) 20 U/L (10-68); AMYLASE - SERUM 36 U/L (25-115); CKMB 0.7 U/L (0.0-3.6); CREATINE KINASE 52 UL (21-232); LIPASE 143 U/L (73-393); PRO BNP 26 pg/mL (0-125)
[2019-02-28 23:24] LABS: TROPONIN-I < 0.017 ng/mL (0.000-0.060)
[2019-02-28] MEDS ORDERED: LOMOTIL 2.5-0.1 EAC1 PO (23:58)
[2019-02-28] MEDS ORDERED: ZOFRAN ODT4 MG/UDTAB PO (23:58)
[2019-03-01 00:01] LABS: APPEARANCE CLEAR (CLEAR); BILIRUBIN NEGATIVE (NEGATIVE); COLOR YELLOW (YELLOW); GLUCOSE 1000 mg/dL (NEGATIVE); KETONE NEGATIVE (NEGATIVE); NITRITE NEGATIVE (NEGATIVE); PROTEIN NEGATIVE (NEGATIVE); SPECIFIC GRAVITY 1.015 (1.005-1.020); UROBILINOGEN NORMAL (NORMAL)
[2019-03-01 00:45] VITALS: BP 144/64
== END 2019-03-01 00:45 | disposition home or self-care (01) ==
LOC: D.ER 21:36
PROVIDERS: Family Medicine
DX: A08.4 Viral intestinal infection, unspecified (principal); R55 Syncope and collapse; E11.9 Type 2 diabetes mellitus without complications; Z79.84 Long term (current) use of oral hypoglycemic drugs; I10 Essential (primary) hypertension; Z72.0 Tobacco use; E07.9 Disorder of thyroid, unspecified

== ENCOUNTER → 2020-01-04 08:37 | Outpatient (CLI) | payer MEDICARE ==
[2019-02-28 21:46] VITALS: BMI 26.5
[~2020-01-04 08:37] MED LIST changes: +FARXIGA10 MG PO; +LOMOTIL 2.5-0.1 EAC1 PO; +SYNTHROID50 MCG PO; +ZOFRAN ODT4 MG/UDTAB PO
--- NOTE | 2020-01-08 08:21 | EC ---
PATIENT:ARON BOWLING DATE OF SERVICE: 01/04/20 SEX: M MEDICAL RECORD: [id number] DATE OF : 50 LOCATION:[facility] AGE OF PATIENT: 69 ADMISSION DATE: 01/04/20 REFERRING PHYSICIAN: INTERPRETING PHYSICIAN: FLETCHER [place] MD ECHOCARDIOGRAM REPORT ECHO CHARGES 4 ECHO COMPLETE Date: 01/04/20 CLINICAL DIAGNOSIS: CAD/ASSESS EF/MITRAL/AORTIC AND TRICSUPID REGURG ECHOCARDIOGRAPHIC MEASUREMENTS (adult normal given) AC root (d.<3.7cm) 4.2 cm LV Septum d (<1.2 cm> 1.6 cm Valve Excursion 2.3 cm LV Septum (systole) 2.2 cm Left Atria (s.<4.0cm> 3.9 cm LVPW d(<1.2cm) 1.7 cm RV (d.<2.3cm) 4.1 cm LVPW (sytole) 2.0 cm LV diastole(<5.6CM) 5.3 cm MV E-F(>70mm/sec) cm LV systole 2.6 cm LVOT Diameter 2.1 cm MV exc.(>10mm) 1.6 cm Est.ejection fraction (50-75%) % DOPPLER: LVIT cm/sec A 80.0 cm/sec E 62.0 cm/sec LA cm/sec RVSP 28 mmHg LVOT 105 cm/sec AOP1/2T 498 m/s Asc. Ao 109 cm/sec RVOT 72 cm/sec RA cm/sec PA 103 cm/sec AV Gradient Peak 4.74 mmHg AV Mean 2.38 mmHg AV Area 3.9 cm MV Gradient Peak 3.92 mmHg MV Mean 1.28 mmHg MV Area cm COMMENTS: Shop Welder: 2 ROMIE CAROLINA Hedis Abstractor: 3 Dr. Richmond TAPE# PACS Pericardial Effusion N DATE OF SERVICE: Adequate 2D, color flow imaging, spectral Doppler, and M-Mode. LVH is present. LV internal dimensions are normal. Wall motion is normal. EF is greater than or equal to 55%. Aortic valve is sclerotic. No evidence of stenosis by Doppler interrogation. There is trace to mild AI by color flow imaging. Left atrium is normal 3.9 cm. Mitral valve shows no prolapse. Trace MR. Right-sided chambers are grossly normal. Mild TR. TRANSINT:[id number] Voice Confirmation ID: [id number] DOCUMENT ID: [id number] ECHOCARDIOGRAM REPORT [id number] ARON BOWLING,FLETCHER Ortiz MD at 0821 CC: [id number] DICTATION DATE: 01/07/20 1221 EEG TECHNICIAN: 01/07/202048 DEP CLI 01/04/20 [place] [id number]
== END | disposition home or self-care (01) ==
LOC: D.HCCECHO 08:37
PROVIDERS: ATTEND Internal Medicine Interventional Cardiology
DX: I25.10 Atherosclerotic heart disease of native coronary artery without angina pectoris (principal)